=== PATIENT | female | born 1975 | race American Indian/Alaskan Native ===

== ENCOUNTER 2018-07-31 17:31 | Emergency (ER) | payer SELFPAY ==
--- NOTE | 2018-07-31 18:00 | Event Note ---
ED Screening Note Date of service: 07/31/18 Time: 17:56 ED Screening Note: 42 y/o female with chest pain time 1 month. Reports it is getting worst. H/o Castillo syndrome. This initial assessment/diagnostic orders/clinical plan/treatment(s) is/are subject to change based on patients health status, clinical progression and re- assessment by fellow clinical providers in the ED. Further treatment and workup at subsequent clinical providers discretion. Patient/guardian urged not to elope from the ED as their condition may be serious if not clinically assessed and managed. Initial orders include:
[2018-07-31 18:37] LABS: Basophils % (Auto) 0.5 % (0.0-1.8); Eosinophils # (Auto) 0.3 K/mm3 (0.0-0.4); Eosinophils % (Auto) 4.2 % (0.0-4.3); Hematocrit 38.1 % (30.3-42.9); Hemoglobin 12.4 gm/dl (10.1-14.3); Lymphocytes # (Auto) 3.1 K/mm3 (1.2-5.4); Lymphocytes % (Auto) 46.1 % (13.4-35.0); Mean Corpuscular HGB Conc 33 % (30-34); Mean Corpuscular Volume 84 fl (79-97); Monocytes # (Auto) 0.5 K/mm3 (0.0-0.8); Monocytes % (Auto) 7.8 % (0.0-7.3); Platelet Count 240 K/mm3 (140-440); Red Blood Count 4.54 M/mm3 (3.65-5.03); Red Cell Distribution Width 16.5 % (13.2-15.2)
--- NOTE | 2018-07-31 18:59 | XRay Report ---
PROCEDURE: XR CHEST ROUTINE 2V TECHNIQUE: PA and lateral chest radiographs were obtained. HISTORY: Chest Pain COMPARISONS: None. FINDINGS: Limited examination due to prominent soft tissue attenuation. Cardiac silhouette size slightly enlarged without definite evidence of vascular congestion. No pneumothorax or pleural effusion. No focal pulmonary consolidation. No acute displaced fracture. IMPRESSION: Slight cardiomegaly without definite evidence of vascular congestion This document is electronically signed by Sam Adame MD., July 31 2018 06:58:09 PM ET
--- NOTE | 2018-07-31 18:59 | Emergency Department Report ---
ED Chest Pain HPI - General Chief Complaint: Chest Pain Stated Complaint: CHEST PAIN Time Seen by Provider: 07/31/18 18:25 Source: patient Mode of arrival: Ambulatory Limitations: No Limitations - History of Present Illness Initial Comments: 42-year-old female presents to the emergency department with complaint of a one-month history of intermittent midsternal nonradiating chest pain, shortness of breath, and some facial pains. She has tried some ibuprofen and other [id number] medications for her symptoms without any relief. She denies any aggravating or alleviating factors. Patient recently took a trip to [place]. She has a past medical history of Pittman syndrome and subsequent oophorectomy. She denies having a primary care physician. She denies any tobacco or illicit drug use. Severity scale (0 -10): 5 - Related Data Previous Rx's Medication Instructions Recorded Last Taken Type Fluticasone [Flonase] 1 spray NS QDAY #1 bottle 07/31/18 Unknown Rx Loratadine [Claritin] 10 mg PO DAILY #10 tablet 07/31/18 Unknown Rx Allergies Allergy/AdvReac Type Severity Reaction Status Date / Time No Known Allergies Allergy Verified 07/31/18 21:18 Heart Score - HEART Score History: Slightly suspicious EKG: Normal Age: < 45 Risk factors: No known risk factors Troponin: < normal limit HEART Score: 0 - Critical Actions Critical Actions: 0-3 pts:0.9-1.7%risk of adverse cardiac event.Candidate for discharge ED Review of Systems ROS: Stated complaint: CHEST PAIN Other details as noted in HPI Comment: All other systems reviewed and negative Constitutional: denies: chills, fever Eyes: denies: eye pain, vision change ENT: denies: throat pain, dental pain Respiratory: shortness of breath. denies: cough Cardiovascular: chest pain. denies: palpitations Gastrointestinal: denies: abdominal pain, vomiting Genitourinary: denies: dysuria, frequency Musculoskeletal: denies: back pain, arthralgia Skin: denies: rash, lesions Neurological: denies: headache, weakness ED Past Medical Hx - Past Medical History Previous Medical History?: Yes Additional medical history: pittman syndrome - Surgical History Past Surgical History?: Yes Additional Surgical History: ovaries removed - Social History Smoking Status: Never Smoker Substance Use Type: None - Medications Home Medications: Home Medications Medication Instructions Recorded Confirmed Last Taken Type Fluticasone [Flonase] 1 spray NS QDAY #1 bottle 07/31/18 Unknown Rx Loratadine [Claritin] 10 mg PO DAILY #10 tablet 07/31/18 Unknown Rx ED Physical Exam - General Limitations: No Limitations - Other Other exam information: GENERAL: The patient is well-developed well-nourished. HENT: Normocephalic. Atraumatic. Patient has moist mucous membranes. EYES: Extraocular motions are intact. Pupils equal reactive to light bilaterally. NECK: Supple. Trachea is midline. CHEST/LUNGS: Clear to auscultation. There is no respiratory distress noted. HEART/CARDIOVASCULAR: Regular. There is no tachycardia. There is no murmur. ABDOMEN: Abdomen is soft, nontender. Patient has normal bowel sounds. There is no abdominal distention. SKIN: Skin is warm and dry. NEURO: The patient is awake, alert, and oriented. The patient is cooperative. The patient has no focal neurologic deficits. The patient has normal speech. MUSCULOSKELETAL: There is no tenderness or deformity. There is no evidence of acute injury. ED Course Vital Signs 07/31/18 07/31/18 07/31/18 17:48 18:26 18:46 Temperature 98.1 F Pulse Rate 70 66 Respiratory 16 18 12 Rate Blood Pressure Blood Pressure 138/85 [Left] O2 Sat by Pulse 100 99 Oximetry 07/31/18 07/31/18 07/31/18 19:00 19:01 19:30 Temperature Pulse Rate 62 65 73 Respiratory 15 21 Rate Blood Pressure 125/80 123/91 Blood Pressure 115/83 [Left] O2 Sat by Pulse 97 99 Oximetry 07/31/18 07/31/18 07/31/18 20:00 20:30 21:00 Temperature Pulse Rate 77 57 L 71 Respiratory 17 17 23 Rate Blood Pressure 116/93 114/73 109/88 Blood Pressure [Left] O2 Sat by Pulse 98 99 100 Oximetry 07/31/18 07/31/18 07/31/18 21:30 22:00 22:30 Temperature Pulse Rate 69 59 L 58 L Respiratory 18 13 16 Rate Blood Pressure 109/88 111/44 122/78 Blood Pressure [Left] O2 Sat by Pulse 99 99 97 Oximetry 07/31/18 07/31/18 23:00 23:30 Temperature Pulse Rate 58 L 58 L Respiratory 17 17 Rate Blood Pressure 120/74 117/77 Blood Pressure [Left] O2 Sat by Pulse 99 98 Oximetry MICHELLE score - Michelle Score Age > 65: (0) No Aspirin use within the Past 7 Days: (0) No 3 or more CAD Risk Factors: (0) No 2 or more Angina events in past 24 hrs: (1) Yes Known CAD with more than 50% Stenosis: (0) No Elevated Cardiac Markers: (0) No ST Deviation Greater than 0.5mm: (0) No MICHELLE Score: 1 ED Medical Decision Making - Lab Data Result diagrams: 07/31/18 18:00 07/31/18 18:00 - EKG Data -: EKG Interpreted by Me EKG shows normal: sinus rhythm, axis, intervals, QRS complexes (low voltage), ST-T waves (T-wave inversions to the anterior leads) Rate: normal - EKG Data When compared to previous EKG there are: previous EKG unavailable Interpretation: other (sinus rhythm, low voltage QRS, T-wave inversions to the anterior leads) - Radiology Data Radiology results: image reviewed interpreted by me: Chest x-ray does not show any acute process. There are no pleural effusions, obvious pneumonia and there is no pneumothorax. - Medical Decision Making This patient presents to the emergency department with a complaint of some midsternal chest pain and some facial pain has been going on intermittently over the past month. An EKG was done that does not show any signs of ST elevation VA, or dysrhythmia. The patient's labs have been unremarkable including negative troponins 2 and a negative d-dimer. Chest x-ray does not show any pleural effusions, pneumonia, pneumothorax, focal consolidation, or any other acute process. She was given a single pain pill, as well as a dose of aspirin, and upon reevaluation her chest pain has resolved. She has some nonspecific facial pain but mostly appears consistent with some sinus pain. There is no significant leukocytosis and no fever and therefore the patient does not appear to have any bacterial sinusitis. She will be given Flonase and Claritin as a prescription. The patient is very low on the heart score criteria and MICHELLE score. The patient appears safe for discharge home. She will be given referrals for primary care and cardiology. She was instructed to return to the emergency department with any return of her chest pain, worsening of her symptoms, or any acute distress. - Differential Diagnosis VA, costochondritis, pneumonia, sinusitis Critical Care Time: No Critical care attestation.: If time is entered above; I have spent that time in minutes in the direct care of this critically ill patient, excluding procedure time. ED Disposition Clinical Impression: Sinus pain Chest pain Qualifiers: Chest pain type: unspecified Qualified Code(s): R07.9 - Chest pain, unspecified Disposition: TO HOME OR SELFCARE Is pt being admited?: No Condition: Stable Instructions: Chest Pain (ED) Additional Instructions: Please follow up with a primary care physician in the next few days. I am giving a referral for a local accountant auditor, Dr. Felix, to follow up regarding your intermittent chest pains. Return to the emergency department with any return of your chest pain, worsening of your symptoms, or any acute distress. Prescriptions: Loratadine [Claritin] 10 mg PO DAILY #10 tablet Fluticasone [Flonase] 1 spray NS QDAY #1 bottle Referrals: BANDAR ROYAL MD [Staff Physician] - 2-3 Days CHRISTY FELIX MD [Staff Physician] - 2-3 Days [facility] [Outside] - 2-3 Days Forms: Work/School Release Form(ED) Time of Disposition: 23:22
[2018-07-31 19:29] LABS: Alanine Aminotransferase 50 units/L (7-56); Albumin 4.1 g/dL (3.9-5); BUN/Creatinine Ratio 18; Blood Urea Nitrogen 11 mg/dL (7-17); Calcium 9.4 mg/dL (8.4-10.2); Hemolysis Index 3
[2018-07-31 19:30] LABS: Bacteria,Urine 1+ /HPF (Negative); Bilirubin,Urine NEG (Negative); Blood,Urine NEG (Negative); Color,Urine Yellow (Yellow); Mucus,Urine FEW /HPF; Protein,Urine <15 mg/dL mg/dL (Negative); Urobilinogen,Urine < 2.0 mg/dL (<2.0)
[2018-07-31] MEDS ORDERED: BABY ASPIRIN PO ONE (20:14)
[2018-07-31] MEDS ORDERED: NORCO 5/325 PO ONE (20:14)
[2018-07-31 23:38] VITALS: BP 117/77
== END 2018-07-31 23:49 | disposition home or self-care (01) ==
LOC: ED 17:31
DX: R07.2 Precordial pain (principal); R51 Headache; R06.02 Shortness of breath
CPT/HCPCS: 36415; 71046; 80053; 81001; 83880; 84484; 85025; 85379; 93005; 93010; 99284